=== PATIENT | male | born 1965 | race Caucasian/White ===

== ENCOUNTER → 2019-06-15 07:18 | Outpatient (CLI) | payer OTHER, SELFPAY ==
[2019-06-15 08:24] LABS: Hematocrit 31.2 % (41-53); Hemoglobin 9.9 g/dL (13.5-17.5); Mean Corpuscular HGB Conc 31.6 % (30-36); Mean Corpuscular Hemoglobin 21.6 PG (26-34); Mean Corpuscular Volume 68.3 fL (80-100); Platelet Count 377 X10^3/uL (150-400); Red Blood Cell Count 4.58 X10^6/uL (4.5-5.9); White Blood Cell Count 5.4 X10^3/uL (4.5-11.0)
[2019-06-15 08:41] LABS: BUN Creatinine Ratio 13.8 (6-22); Blood Urea Nitrogen 11 mg/dL (9-20); Calcium 9.5 mg/dL (8.4-10.2); Carbon Dioxide 26 mmol/L (22-32); Chloride 100 mmol/L (98-107); Estimated Glomerular Filt Rate > 60.0 mL/min (>60); Glucose 106 mg/dL (70-100); HEMOLYSIS < 15 (0-50); Potassium 4.3 mmol/L (3.4-5.1); Sodium 140 mmol/L (137-145)
== END ==
PROVIDERS: Visit Provider Orthopaedic Surgery Orthopaedic Surgery of the Spine
DX: Z01.818 Encounter for other preprocedural examination (principal)
CPT/HCPCS: 36415; 80048; 85027; 93005

== ENCOUNTER 2019-07-18 10:36 | Day surgery (SDC) | payer OTHER, SELFPAY ==
[2019-07-18] VITALS (12 sets, daily range): BP systolic 134–179; BP diastolic 76–106; PULSE 85–125; RESP 7–20; TEMP 36–36.4; O2SAT 89–98
--- NOTE | 2019-07-18 | DI.RAD.S_ITS ---
PROCEDURE: XR CERVICAL SPINE 2V OR 3V INDICATIONS: C6-7 ACDF TECHNIQUE: 2 view(s) of the cervical spine were acquired. COMPARISON: None. FINDINGS: 2 spot fluoroscopic images demonstrating ACDF, presumably C6-C7 although the exact spinal level indeterminate due to absence of anatomic landmarks in the [id number] and recommend correlation real-time observations Dictated by: Nima Storey M.D. on 07/18/2019 at 15:39 Approved by: Nima Storey M.D. on 07/18/2019 at 15:40
[2019-07-18] MEDS: LACTATED RINGERS 1,000 ML 42 ML IV (10:53)
[2019-07-18] MEDS: ACETAMINOPHEN 325 MG TABLET 975 MG PO (11:08)
[2019-07-18] MEDS: GABAPENTIN 300 MG CAPSULE PO (11:09)
--- NOTE | 2019-07-18 11:57 | PM.PREOP ---
Pre-operative Note Interval Note History & Physical reviewed/Exam performed by Physician: Yes Changes to H&P: No
[2019-07-18] MEDS: CEFAZOLIN 2 GM/100 ML FROZ.PIGGY IV (12:18)
--- NOTE | 2019-07-18 12:54 | SUR.OPER ---
Supine on padded OR bed, head on gel doughnut, arms padded with gel pads and tucked at side, legs uncrossed, safety belt at thigh, tape over blanket over lower legs .shoulders taped inferiorly to provide traction and expose cervical area
--- NOTE | 2019-07-18 13:56 | PM.OP.1 ---
Operative Date/Time/Diagnoses Date of procedure: 07/18/19 Time of procedure: 11:56 Pre-op diagnosis: 1. C6-7 disc herniation 2. C6-7 spinal stenosis Post-op diagnosis: same Procedure & Clinicians Procedure: 1. C6-7 anterior cervical discectomy and fusion 2. C6-7 anterior interbody cage placement 3. C6-7 anterior instrumentation with plate and screws 4. Utilization of microsurgical technique and operating microscope Same procedure as scheduled: Yes Indications: Patient has been having chronic neck pain and worsening cervical radiculopathy. Patient failed multiple conservative management with worsening pain weakness and numbness in her upper extremity. Patient has been having difficulty performing activity of daily living. After discussing risks benefits of treatment options, patient elected proceed with surgery. Surgeon: Bernard Esparza Director Of Land Acquisition: Brenda Beasley Click Yes if Unassisted: No Anesthesia Type: General Operative Notes Closure Type: primary Specimen(s): none sent Prosthetic devices, grafts, tissues, transplants, or devices: Globus Extend plate, PEEK cage Estimated Blood Loss (mL): 10 Blood products transfused: none Procedure in detail: Patient was seen in the preoperative area. Risks and benefits of the surgery was discussed with the patient. Informed consent was obtained from the patient and placed in the chart. Surgical site was marked. Patient was taken to the operative room. General anesthesia was administered. Prophylactic antibiotic was given to the patient less than 30 min before the incision was made. Patient was placed into a supine position on a radiolucent table. Patient's shoulders were taped down to allow proper C-arm imaging. Anterior cervical area was prepped and draped in a sterile fashion. Time-out was performed at this time. Using lateral C-arm imaging, the level between C6 and C7 was identified and marked on patient's neck. A oblique incision from midline towards medial border of sternocleidomastoid muscle was made. The platysma muscle was incised in line with skin incision. Metzenbaum scissor was used to develop the plane between the medial border of sternocleidomastoid d and the strap muscles medially. The carotid sheath and its contents were identified and protected behind the hand-held retractor during the entire case. The plane between the carotid sheath and strap muscles was developed with Metzenbaum scissors. Dissection was made down to the level of the anterior cervical fascia. Longus colli muscle was incised on the anterior aspect of vertebral bodies bilaterally from C6-7. Spinal needle was placed into the C6-7 disc space and confirmed with lateral C-arm imaging. Using microsurgical technique and operative microscope, anterior cervical diskectomy was performed at C6-7 level. This was done by removing the disc material, removing the anterior and posterior osteophytes posterior longitudinal ligaments along with performing bilateral foraminotomies at the C6-7 levels. Patient was found to have severe foraminal stenosis due to large fragments of left-sided disc extrusion impinging on the exiting nerve root at C6-7 level. Patient's stenosis was fully decompressed after decompression was completed. After the diskectomy was completed, an anterior interbody cage was obtained. The cage was packed with demineralized bone matrix bone grafting material. One cage each along with the bone grafting material was then packed into the interbody space at C6-7 along with an anterior cervical plate. The cervical plate was stabilized to the C6-7 vertebrae using screws. After confirming placement of the hardware with AP and lateral C-arm imaging, the screws were locked into the plate using the locking mechanism and torque limiting screwdriver. After the hardware was placed and confirmed with AP and lateral C-arm imaging, the wound was irrigated with sterile normal saline. The platysma muscle and the subcutaneous tissue was closed with 2-0 Vicryl. The skin was closed with 4-0 Monocryl and Steri-Strips. Patient tolerated the procedure well. Patient was transferred recovery room in stable condition. There were no complications. Complications: none Post-operative Condition: stable Disposition: PACU Plan for aftercare: Discharge to home
[2019-07-18] MEDS: HYDROMORPHONE 2 MG INJ 0.5 MG IV ×3 (14:29→14:48)
--- NOTE | 2019-07-18 14:40 | SUR.PHASEI ---
Able to swallow ice chips and water without difficulty. Tolerating applesauce.
[2019-07-18] MEDS: OXYCODONE IR 5 MG TABLET PO (14:47)
== END 2019-07-18 16:25 | disposition home or self-care (01) ==
PROVIDERS: PCP Family Medicine; Visit Provider Orthopaedic Surgery Orthopaedic Surgery of the Spine
PROC: (CPT 22551; principal; 2019-07-18 12:30)
DX: M48.02 Spinal stenosis, cervical region (principal); M50.123 Cervical disc disorder at C6-C7 level with radiculopathy
CPT/HCPCS: 22551; 22853; 72040; 76000; C1776; J0690; J1100; J1170; J2250; J2405; J2704; J3010

== ENCOUNTER → 2020-02-29 13:53 | Outpatient (CLI) | payer OTHER, SELFPAY ==
--- NOTE | 2020-02-29 14:00 | DI.RAD.S_ITS ---
PROCEDURE: XR FOOT LT MIN 3V INDICATIONS: left foot pain TECHNIQUE: 3 views of the foot were acquired. COMPARISON: None. FINDINGS: Bones: No fractures or dislocations. No suspicious bony lesions. Soft tissues: No tibiotalar joint effusion. Achilles tendon appears normal. IMPRESSION: No trauma found, a source of pain is not seen. Dictated by: Jonathon Castro M.D. on 02/29/2020 at 14:27 Approved by: Jonathon Castro M.D. on 02/29/2020 at 14:28
== END ==
PROVIDERS: PCP Family Medicine; Referring Provider Family Medicine; Visit Provider Family Medicine
DX: M79.672 Pain in left foot (principal)
CPT/HCPCS: 73630

== ENCOUNTER → 2020-03-19 16:10 | Outpatient (CLI) | payer OTHER, SELFPAY ==
--- NOTE | 2020-03-19 16:12 | DI.RAD.S_ITS ---
PROCEDURE: XR LUMBAR SPINE MIN 4V INDICATIONS: Right sided back pain TECHNIQUE: 5 views of the lumbar spine were acquired, including flexion and extension views. COMPARISON: None. FINDINGS: Bones: Postoperative changes are seen, with bilateral pedicle screws at the L5 and S1 levels. The screws appear well placed. Vertical fixation rods are seen. No findings of hardware failure or hardware loosening are seen. There has been removal of portions of the posterior elements. 5 nonrib-bearing, lumbar type vertebral bodies are seen. No acute appearing fractures are seen. No suspicious lytic or blastic lesions can be seen. On flexion-extension views, there is limited range of motion, without abnormal subluxation. No abnormal motion can be seen within the fused region. Moderate disc space narrowing is seen at L5-S1. The disc heights otherwise appear well-preserved. Soft tissues: Overlying bowel gas pattern is normal. No suspicious soft tissue calcifications. IMPRESSION: Unremarkable L5-S1 postoperative change. Limited range of motion, without abnormal subluxation. Focal L5-S1 degenerative change. Dictated by: Owen Russell M.D. on 03/19/2020 at 15:50 Approved by: Owen Russell M.D. on 03/19/2020 at 15:51
== END ==
PROVIDERS: PCP Family Medicine; Referring Provider Family Medicine; Visit Provider Family Medicine
DX: M54.9 Dorsalgia, unspecified (principal); M47.817 Spondylosis without myelopathy or radiculopathy, lumbosacral region; G89.29 Other chronic pain; Z98.1 Arthrodesis status
CPT/HCPCS: 72110

== ENCOUNTER → 2020-12-21 08:06 | Outpatient (CLI) | payer OTHER, SELFPAY ==
[2020-12-21] MEDS: COVID-19 VACC, Ad26(JANSSEN)/PF 0.5 ML IM (08:13)
== END ==
PROVIDERS: PCP Family Medicine; Visit Provider Internal Medicine
DX: Z23 Encounter for immunization (principal)
CPT/HCPCS: 0031A; 91303

== ENCOUNTER → 2021-01-28 11:08 | Outpatient (CLI) | payer OTHER, SELFPAY ==
[2021-01-28 11:57] LABS: Add Manual Diff / Slide Review NO; Basophils Absolute Auto 100 /uL (0-100); Basophils Percent Auto 1.3 % (0-2); Eosinophils Absolute Auto 200 /uL (0-450); Eosinophils Percent Auto 2.9 % (2-4); Hematocrit 34.9 % (41-53); Hemoglobin 11.8 g/dL (13.5-17.5); Lymphocytes Absolute Auto 1400 /uL (1100-4500); Lymphocytes Percent Auto 21.2 % (25-40); Mean Corpuscular HGB Conc 33.6 % (30-36); Mean Corpuscular Hemoglobin 28.4 PG (26-34); Mean Corpuscular Volume 84.3 fL (80-100); Monocytes Absolute Auto 900 /uL (0-900); Monocytes Percent Auto 13.7 % (3-14); Neutrophils Absolute Auto 3900 /uL (1500-7000); Neutrophils Percent Auto 60.9 % (50-75); Platelet Count 257 X10^3/uL (150-400); Red Blood Cell Count 4.15 X10^6/uL (4.5-5.9); Red Cell Distribution Width 13.5 % (11.6-14.8); White Blood Cell Count 6.4 X10^3/uL (4.5-11.0)
[2021-01-28 12:27] LABS: Alanine Aminotransferase 36 IU/L (<50); Albumin 4.2 g/dL (3.5-5.0); Albumin Globulin Ratio 1.4 (1.0-2.8); Alkaline Phosphatase 67 U/L (38-126); Aspartate Aminotransferase 40 IU/L (17-59); BUN Creatinine Ratio 21.1 (6-22); Bilirubin Total 0.3 mg/dL (0.2-1.3); Blood Urea Nitrogen 16 mg/dL (9-20); Calcium 9.7 mg/dL (8.4-10.2); Carbon Dioxide 24 mmol/L (22-32); Chloride 105 mmol/L (98-107); Estimated Glomerular Filt Rate > 60.0 mL/min (>60); Glucose 101 mg/dL (70-100); HEMOLYSIS < 15 (0-50); Sodium 138 mmol/L (137-145); Total Protein 7.2 g/dL (6.3-8.2)
== END ==
PROVIDERS: PCP Family Medicine; Referring Provider Family Medicine; Visit Provider Family Medicine
DX: D64.9 Anemia, unspecified (principal); I10 Essential (primary) hypertension
CPT/HCPCS: 36415; 80053; 85025

== ENCOUNTER → 2021-05-13 14:00 | Outpatient (CLI) | payer OTHER, SELFPAY ==
[2021-05-13 15:15] LABS: Add Manual Diff / Slide Review NO; Basophils Absolute Auto 100 /uL (0-100); Basophils Percent Auto 1.8 % (0-2); Eosinophils Absolute Auto 300 /uL (0-450); Eosinophils Percent Auto 4.3 % (2-4); Hematocrit 35.2 % (41-53); Hemoglobin 10.6 g/dL (13.5-17.5); Lymphocytes Absolute Auto 1700 /uL (1100-4500); Lymphocytes Percent Auto 25.7 % (25-40); Mean Corpuscular HGB Conc 30.2 % (30-36); Mean Corpuscular Hemoglobin 21.7 PG (26-34); Mean Corpuscular Volume 71.7 fL (80-100); Monocytes Absolute Auto 900 /uL (0-900); Monocytes Percent Auto 14.3 % (3-14); Neutrophils Absolute Auto 3600 /uL (1500-7000); Neutrophils Percent Auto 53.9 % (50-75); Platelet Count 320 X10^3/uL (150-400); Red Cell Distribution Width 16.8 % (11.6-14.8); White Blood Cell Count 6.6 X10^3/uL (4.5-11.0)
[2021-05-13 15:32] LABS: Alanine Aminotransferase 39 IU/L (<50); Albumin 4.2 g/dL (3.5-5.0); Albumin Globulin Ratio 1.2 (1.0-2.8); Alkaline Phosphatase 76 U/L (38-126); Aspartate Aminotransferase 36 IU/L (17-59); BUN Creatinine Ratio 21.5 (6-22); Bilirubin Total 0.3 mg/dL (0.2-1.3); Blood Urea Nitrogen 17 mg/dL (9-20); Calcium 9.5 mg/dL (8.4-10.2); Carbon Dioxide 25 mmol/L (22-32); Chloride 103 mmol/L (98-107); Estimated Glomerular Filt Rate > 60.0 mL/min (>60); Globulin 3.4 g/dL (1.7-4.1); Glucose 84 mg/dL (70-100); HEMOLYSIS < 15 (0-50); Potassium 3.8 mmol/L (3.4-5.1); Sodium 137 mmol/L (137-145); Total Protein 7.6 g/dL (6.3-8.2)
[2021-05-13 15:35] LABS: HEMOLYSIS < 15 (0-50); Iron 42 ug/dL (49-181)
[2021-05-13 15:46] LABS: Percent Iron Saturation 9 % (20-50); Total Iron Binding Capacity 494 ug/dL (261-462); Transferrin 391 mg/dL (206-381)
[2021-05-13 16:16] LABS: Vitamin B12 332 pg/mL (239-931)
== END ==
PROVIDERS: PCP Family Medicine; Referring Provider Family Medicine; Visit Provider Family Medicine
DX: D64.9 Anemia, unspecified (principal)
CPT/HCPCS: 36415; 80053; 82607; 83540; 83550; 85025

== ENCOUNTER → 2021-06-26 10:02 | Outpatient (CLI) | payer OTHER, SELFPAY ==
[2021-06-26 11:53] LABS: COVID19 -Nasal RAPID Negative (Negative)
== END ==
PROVIDERS: PCP Family Medicine; Visit Provider Specialist
DX: Z01.812 Encounter for preprocedural laboratory examination (principal); Z20.822 Contact with and (suspected) exposure to COVID-19
CPT/HCPCS: 87635; C9803

== ENCOUNTER 2021-06-27 07:45 | Day surgery (SDC) | payer OTHER, SELFPAY ==
[2021-06-27] VITALS (7 sets, daily range): BP systolic 112–157; BP diastolic 71–80; PULSE 75–78; RESP 12–20; TEMP 36.2–37.2; O2SAT 92–98; BMI 31.4
--- NOTE | 2021-06-27 | PATH_ITS ---
[facility] Accession Number: [id number] . 01 Material submitted: . PART A: gastrointestinal site - HEALING GASTRIC ULCER NEAR PYLORIC CHANNEL PART B: esophagus, E-G Junction - GE JUNCTION PART C: colon - TRANSVERSE COLON POLYPS . 02 Diagnosis: A. Stomach, Healing Ulcer Near Pyloric Channel, Biopsy: Antral mucosa with reactive gastropathy and mild chronic gastritis. Negative for Helicobacter by immunohistochemistry. Negative for intestinal metaplasia. Negative for dysplasia and malignancy. . B. Gastroesophageal Junction, Biopsy: Squamocolumnar junctional mucosa with specialized intestinal metaplasia, consistent with Cabrera's esophagus. Negative for dysplasia and malignancy. . C. 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 Benign lymphoid aggregate in one fragment. [facility] 07/03/2021 1609 Local . 02 Electronically signed: . Tricia Merchant MD, Pathologist NPI- [id number] . 01 Gross description: . Part A: HEALING GASTRIC ULCER NEAR PYLORIC CHANNEL: Received in formalin are 2 fragment(s) of piedra, soft tissue measuring 0.4 x 0.3 x 0.3 cm to 0.4 x 0.3 x 0.2 cm submitted entirely in 1 cassette(s) Part B: GE JUNCTION: Received in formalin are multiple fragment(s) of piedra, soft tissue measuring 1.4 x 0.4 x 0.2 cm in aggregate submitted entirely in 1 cassette(s) Part C: TRANSVERSE COLON POLYPS: Received in formalin are multiple fragment(s) of piedra, soft tissue measuring 2.5 x 0.6 x 0.2 cm in aggregate submitted entirely in 1 cassette(s) /BALJINDER 06/28/2021 0458 Local . 02 Microscopic: . A. An immunohistochemical stain was performed to evaluate for Helicobacter organisms and is negative. The control stain showed appropriate reactivity. . * This test was developed and its performance characteristics determined by [facility]. It has not been cleared or approved by the U.S. Food and Drug Administration. The FDA has determined that such clearance or approval is not necessary. This test is used for clinical purposes. It should not be regarded as investigational or for research. . 02 Pathologist provided ICD-10: K22.70, D12.3 . 02 CPT . 010148, 303716, 770366, [id number] Performed at: 01 [facility] [address] [place] [address], [place], [place] [id number] MD Blair Pickard MD Phone: [phone] Performed at: 02 [facility] [address] [place] [id number] MD Tricia eMrchant MD Phone: [phone]
[2021-06-27] MEDS: LACTATED RINGERS 1,000 ML 42 ML IV (08:13)
--- NOTE | 2021-06-27 08:22 | PM.PREOP ---
Pre-operative Note COVID-19 COVID-19 status: Negative Result date/Date tested (Pos, Neg/Pending): 06/26/21 Interval Note History & Physical reviewed/Exam performed by Physician: Yes Changes to H&P: No ASA Class (for procedural sedation): II
[2021-06-27] MEDS: LIDOCAINE 4% SOLN 50 ML 20 ML TOP (08:35)
[2021-06-27] MEDS: fentaNYL 250 MCG/5 ML INJ IV (09:00)
[2021-06-27] MEDS: MIDAZOLAM 5 MG/5 ML VIAL IV (09:00)
--- NOTE | 2021-06-27 09:18 | PM.OP.ENDO ---
Operative Date/Time/Diagnoses Date of procedure: 06/27/21 Time of procedure: 09:18 Pre-op diagnosis: Anemia. Post-op diagnosis: same (Possible Cabrera's esophagus. Possible healing gastric ulcer. Small polyp in the transverse colon. Extensive sigmoid diverticulosis. Thrombosed external hemorrhoids.) Procedure & Clinicians Study performed: Colonoscopy with cold biopsy. EGD with cold biopsy. Same procedure as scheduled: Yes Indications: Try to determine cause of anemia Surgeon: Diaz Eddy Procedure Notes SCOAP/Timeout: Performed Procedure in detail: The patient had topical anesthetic applied to oropharynx. She was placed in the left lateral decubitus position and underwent IV sedation directed by the surgeon consisting of fentanyl and Versed. A bite block was inserted and the scope was advanced through it into the esophagus. The esophagus was unremarkable until I reached the GE junction. There appeared to be tongues of red tissue extending above it suggestive of possible Cabrera's esophagus. GE junction was noted at 40 cm from the incisors. The stomach insufflated well. There were no lesions seen in the body, or at the incisura. In the gastric antrum there was an area that appeared to be granulation tissue in the region of a prior ulcer. There was no active ulcer crater however. The pyloric channel was patent. The duodenum was unremarkable to the 4th part. Scope was brought back into the stomach and retroflexed. The proximal stomach normal in appearance. No evidence of a hiatal hernia. I took biopsies of the area with what appeared to be granulation tissue. The scope was straightened and brought out into the esophagus again. Biopsies were taken at the GE junction. No other Lesions were seen. The scope was removed and the patient tolerated the procedure well. The patient was placed in the left lateral decubitus position and underwent IV sedation directed by the surgeon consisting of fentanyl and Versed. Digital exam was remarkable for obvious thrombosed external hemorrhoids. There was some protruding violaceous mucosa as well. Digital exam was unremarkable otherwise. Prostate was not enlarged. The scope was inserted and advanced through the rectum into the sigmoid, descending, transverse, and ascending colon. Numerous sigmoid diverticula were noted. The cecum was reached after applying pressure and inserting a stiffener. It was Identified by the ileocecal valve and the appendiceal opening. The ileocecal valve was successfully cannulated. The terminal ileum was normal in appearance. The scope was gradually brought out. One small Polyp was found in the transverse colon not far from the hepatic flexure. It was removed with biopsy forceps. Scope ultimately was retroflexed in the rectum. The appearance was normal which was surprising given the external thrombosis. The scope was removed and the patient tolerated the procedure well. The prep was very good. Scope withdrawal time: 8 minutes(11 total) Sedation minutes: 37 Findings: Cabrera's esophagus (Possible), diverticulosis, gastric ulcer (Healing), polyp (Transverse colon) and other findings (Thrombosed external hemorrhoids) Specimen(s): other (Gastric ulcer. GE junction. Colonic polyp.) Complications: none Post-procedure Recommendations: Colonscopy in 5 years, Start medication(s) (Omeprazole) and Other recommendation (Warm Sitz baths 3 or 4 a day until your thrombosed hemorrhoids resolved. This may take a few weeks.) Follow up: as needed Disposition: PACU
--- NOTE | 2021-06-27 10:42 | SUR.PHASEII ---
Belly soft, tolerates liquids, pt ready to go, escorted to car, pt's did not want to go over pt's d/c paperwork, encouraged to call surgeon's office with questions. Discussed at length d/c instructions with pt and he stated an understanding.
== END 2021-06-27 10:25 | disposition home or self-care (01) ==
PROVIDERS: PCP Family Medicine; Referring Provider Specialist; Visit Provider Specialist
PROC: 0DJ08ZZ Inspection of Upper Intestinal Tract, Via Natural or Artificial Opening Endoscopic (ICD-10-PCS; CPT 43235; principal; 2021-06-27 08:15)
PROC: 0DJD8ZZ Inspection of Lower Intestinal Tract, Via Natural or Artificial Opening Endoscopic (ICD-10-PCS; CPT 45378; 2021-06-27 08:15)
DX: D50.9 Iron deficiency anemia, unspecified (principal); D12.3 Benign neoplasm of transverse colon; K62.5 Hemorrhage of anus and rectum; K57.30 Diverticulosis of large intestine without perforation or abscess without bleeding; K29.50 Unspecified chronic gastritis without bleeding; K22.70 Barrett's esophagus without dysplasia; K64.5 Perianal venous thrombosis; I10 Essential (primary) hypertension; Z87.891 Personal history of nicotine dependence
CPT/HCPCS: 45380; 43239; 99152; 99153; J2250; J3010

== ENCOUNTER → 2022-01-09 07:14 | Outpatient (CLI) | payer OTHER, SELFPAY ==
[2022-01-09 07:56] LABS: Add Manual Diff / Slide Review NO; Basophils Absolute Auto 0 /uL (0-100); Basophils Percent Auto 0.7 % (0-2); Eosinophils Absolute Auto 200 /uL (0-450); Eosinophils Percent Auto 2.4 % (2-4); Hematocrit 42.5 % (41-53); Hemoglobin 14.3 g/dL (13.5-17.5); Lymphocytes Absolute Auto 1500 /uL (1100-4500); Lymphocytes Percent Auto 21.7 % (25-40); Mean Corpuscular HGB Conc 33.6 % (30-36); Mean Corpuscular Hemoglobin 28.6 PG (26-34); Monocytes Absolute Auto 800 /uL (0-900); Monocytes Percent Auto 11.8 % (3-14); Neutrophils Absolute Auto 4300 /uL (1500-7000); Neutrophils Percent Auto 63.4 % (50-75); Platelet Count 283 X10^3/uL (150-400); Red Cell Distribution Width 13.2 % (11.6-14.8); White Blood Cell Count 6.8 X10^3/uL (4.5-11.0)
[2022-01-09 08:22] LABS: HEMOLYSIS < 15 (0-50); Iron 99 ug/dL (49-181)
[2022-01-09 08:33] LABS: Percent Iron Saturation 26 % (20-50); Total Iron Binding Capacity 386 ug/dL (261-462); Transferrin 299 mg/dL (206-381)
[2022-01-09 08:59] LABS: Ferritin 29 ng/mL (18-464)
== END ==
PROVIDERS: PCP Family Medicine; Referring Provider Family Medicine; Visit Provider Family Medicine
DX: D50.9 Iron deficiency anemia, unspecified (principal); K22.70 Barrett's esophagus without dysplasia
CPT/HCPCS: 36415; 82728; 83540; 83550; 85025

== ENCOUNTER → 2022-11-17 07:59 | Outpatient (CLI) | payer OTHER, SELFPAY ==
[2022-11-17 09:12] LABS: Hemoglobin A1C% w Est Avg Glu 5.5 % (4.0-6.0)
[2022-11-17 10:29] LABS: Alanine Aminotransferase 29 IU/L (<50); Albumin 4.1 g/dL (3.5-5.0); Albumin Globulin Ratio 1.5 (1.0-2.8); Alkaline Phosphatase 63 U/L (38-126); Aspartate Aminotransferase 26 IU/L (17-59); BUN Creatinine Ratio 16.9 (6-22); Bilirubin Total 0.6 mg/dL (0.2-1.3); Blood Urea Nitrogen 12 mg/dL (9-20); Calcium 9.1 mg/dL (8.4-10.2); Carbon Dioxide 29 mmol/L (22-32); Chloride 100 mmol/L (98-107); Cholesterol 181 mg/dL (140-199); Estimated Glomerular Filt Rate > 60 mL/min (>60); Globulin 2.8 g/dL (1.7-4.1); Glucose 99 mg/dL (70-100); HDL Cholesterol 41 mg/dL (40-60); HEMOLYSIS < 15 (0-50); LDL Cholesterol Calculated 118 mg/dL (<100); Potassium 4.5 mmol/L (3.4-5.1); Sodium 137 mmol/L (137-145); Total Protein 6.9 g/dL (6.3-8.2); Triglycerides 112 mg/dL (35-150)
[2022-11-17 11:00] LABS: Prostate Specific Antigen Scrn 0.522 ng/mL (0.1-4.0)
[2022-11-17 11:19] LABS: Vitamin B12 271 pg/mL (239-931)
== END ==
PROVIDERS: PCP Family Medicine; Referring Provider Family Medicine; Visit Provider Family Medicine
DX: D64.9 Anemia, unspecified (principal); H40.9 Unspecified glaucoma; I10 Essential (primary) hypertension; K22.70 Barrett's esophagus without dysplasia; Z12.5 Encounter for screening for malignant neoplasm of prostate; D50.9 Iron deficiency anemia, unspecified; E53.8 Deficiency of other specified B group vitamins
CPT/HCPCS: 36415; 80053; 80061; 82607; 83036; G0103